=== PATIENT | male | born 1995 | race Caucasian/White ===

== ENCOUNTER 2017-01-26 09:34 | Emergency (ER) | payer OTHER, BC ==
[~2017-01-26] VITALS: Ht 167.6 cm; Wt 49.1 kg
[2017-01-26 09:36] VITALS: TEMP 36.7; Ht 167.6 cm; Wt 49.1 kg
[2017-01-26] MEDS ORDERED: XYLOCAINE 1%/SOD BICARB 20 ML VIAL INFIL STA (10:04)
--- NOTE | 2017-01-26 10:32 | DIAGNOSTIC IMAGING REPORT ---
L FINGER(S) MIN 2 VIEWS ROUTINE CLINICAL HISTORY: 21 years-old Male presenting with L 2nd digit trauma. TECHNIQUE: Frontal, oblique, and lateral views of the right second finger were obtained. COMPARISON: None. FINDINGS: No radiopaque foreign body. No acute fracture or malalignment. Tiny calcification noted in the soft tissues superficially along the dorsum at the level of the second metacarpophalangeal articulation. IMPRESSION: No acute osseous injury of the right second finger. Electronically signed by: Jarett Johnson M.D. 01/26/2017 10:31 AM Dictated Date/Time: 01/26/2017 10:29 AM
[2017-01-26 11:48] VITALS: BP 115/56; PULSE 69; O2SAT 97
[2017-01-26] MEDS ORDERED: CEPH500C PO (12:05)
--- NOTE | 2017-01-26 12:06 | EMERGENCY ROOM VISIT NOTE ---
ED Visit Note First contact with patient: 09:48 Chief Complaint: "Cut on hand". History of Present Illness: This patient is a 21-year-old male who presents to the Emergency Department via private vehicle for evaluation of their left second digit laceration. Patient sustained the laceration while at work grinding a piece of metal when the metal kicked back and struck him at the proximal aspect of the left second digit on the dorsal aspect. This was washed with peroxide, and placed with Neosporin and warm water. They report a minimal amount of bleeding initially. They deny any numbness or tingling into the distal extremity. They report no decreased range of motion of the affected digit. Patient rates his current discomfort as a 3/10. Patient's Tetanus status is believed to be currently up-to-date. Medications: As noted below Allergies: None PMH: No pertinent SHx: Patient is employed and lives locally. ROS: All pertinent positive and negative review of systems are appropriately documented in the History of Present Illness. Physical Exam: VITAL SIGNS - Vital signs and nursing notes were reviewed. Stable. GENERAL -21-year-old male appearing his stated age who is in no acute distress. Communicates well with provider and answers questions appropriately. SKIN - There is a 1.25 cm long laceration noted proximal aspect of the left second digit on the dorsal aspect. The edges gape apart with traction. No foreign bodies appreciated. No bony deformity however there is a palpable divot appreciated in the tendon extensor region overlying the laceration region. He was neurovascularly intact in this extremity region. VASCULAR - Capillary refill was brisk. IMAGING: L FINGER(S) MIN 2 VIEWS ROUTINE CLINICAL HISTORY: 21 years-old Male presenting with L 2nd digit trauma. TECHNIQUE: Frontal, oblique, and lateral views of the right second finger were obtained. COMPARISON: None. FINDINGS: No radiopaque foreign body. No acute fracture or malalignment. Tiny calcification noted in the soft tissues superficially along the dorsum at the level of the second metacarpophalangeal articulation. IMPRESSION: No acute osseous injury of the right second finger. Electronically signed by: Jarett Johnson M.D. 01/26/2017 10:31 AM Dictated Date/Time: 01/26/2017 10:29 AM ED Course: Patient was seen and evaluated by myself. Risks and benefits of performing primary wound closure versus no repair were discussed with the patient who verbalizes understanding. He is right-hand dominant. Verbal consent was obtained prior to performing the procedure. 4 Cc of 1% buffered lidocaine was used to perform local anesthetization of the left second digit. The wound was cleansed and prepped in the typical sterile fashion utilizing normal saline and Betadine. X-ray was obtained and reveals no fracture. There is concern for partial tendon injury. He still is full range of motion with good strength. Case was discussed with the attending physician is up slightly the on-call orthopedic individual Dylan Sawant physician specimen preparation assistant. The call was placed because of the need for follow-up to ensure the tendon is in good repair. We discussed that he was placed on Keflex, will be thoroughly irrigated, closed and he is to follow-up. He will be appropriate responded. The wound was sterilely draped. Once proper anesthetization was established, the wound was further examined and demonstrated no deep involvement however there is questionable tendon injury although not appreciable visually it is palpable. The wound was copiously irrigated with normal saline and Betadine. The wound was closed using 2 simple, 5-0 nylon sutures with the wound edges being well approximated. Patient tolerated the procedure well. No complications were met. The wound was cleansed and dressed with a Bacitracin dressing. A metal splint was applied to the finger for comfort. He is to follow with the approval Workmen's Compensation individual as well as orthopedics regarding today's injury. 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 Patient educated on worrisome symptoms for return visit to the Emergency Department. Patient discharged to home in good condition. In the evaluation and treatment of this patient, the following differential diagnoses were considered: Finger Fracture, Finger Dislocation, Finger Sprain, Finger Contusion, Jersey Finger, or Mallet Finger. Current/Historical Medications Scheduled Cephalexin Monohydrate (Keflex), 500 MG PO TID Miscellaneous Medications None (Patient States No Home Meds) Allergies Coded Allergies: No Known Allergies (Unverified , 01/26/17) Vital Signs Date Time Temp Pulse Resp B/P (MAP) Pulse Ox O2 Delivery O2 Flow Rate FiO2 01/26/17 11:48 69 16 115/56 97 Room Air 01/26/17 09:36 36.7 81 18 135/79 98 Room Air Departure Information Impression Primary Impression: Laceration Dispostion Home / Self-Care Condition GOOD Prescriptions Cephalexin Monohydrate (Keflex) 500 Mg Cap 500 MG PO TID for 7 Days, #21 CAP Prov: Nilo Ramos PA-C 01/26/17 Referrals Tuan Plunkett M.D. (PCP) Derrick Enriquez MD Patient Instructions [facility] Additional Instructions Discharge Instructions: You have received 2 sutures on your hand. These sutures are NOT dissolvable and WILL need to be removed by a health care provider in 14 days. You can return to the Emergency Department or contact your Primary Care Provider to have the sutures removed. I recommended following up with the approve Workmen's Compensation individual as well as Dr. Enriquez a hand specialist in the area. This is because of the dent felt in the tendon on your finger. Please wear the splint for comfort until the sutures are removed. Proper wound care is essential for adequate wound healing and infection prevention. You can shower and clean the wound with soap and water. Do not scour over the wound, pat dry with a towel. Do not submerse the wound (i.e. bathe or dish wash) until the sutures have been removed. You can use an antibiotic ointment with a dressing over the wound for the next 3-4 days. After this time you may leave the wound dry and open to the air. If crust develops over the wound you can use a Q-tip to apply a 1:1 peroxide:water solution to clean the wound. Look for signs of infection of the wound including: increased pain, swelling, foul discharge, streaking, or increased temperature. If any of these are noticed you should return to the Emergency Department for further assessment and treatment. As with any laceration you may have received nerve damage to the surrounding tissues. This damage may or may not be permanent. You should keep the area covered with sunscreen for the first 6 months to 1 year when at risk for exposure to help minimize scarring. You can also use scar reducing creams or Vitamin E oil to help minimize scarring. For pain control, you can use the following [id number] medicines (if >12 yo): - Regular strength (325mg/tab) Tylenol (acetaminophen) 2 tabs every 4-6 hours as needed. Do not exceed 12 tablets in a 24 hour period. Avoid taking more than 3 grams (3000 mg) of Tylenol per day. This includes any other sources of acetaminophen you may take on a regular basis. - Regular strength (200 mg/tab) Advil (ibuprofen) 1-2 tabs every 4-6 hours as needed. Do not exceed a dose of 3200 mg per day. Return to the emergency department if your symptoms worsen despite treatment course outlined above.
== END 2017-01-26 12:19 | disposition home or self-care (01) ==
LOC: C.EDB 09:36 → C.EDC 12:19
DX: S61.211A Laceration without foreign body of left index finger without damage to nail, initial encounter (principal); W31.1XXA Contact with metalworking machines, initial encounter; Y92.89 Other specified places as the place of occurrence of the external cause; Y99.0 Civilian activity done for income or pay